=== PATIENT | female | born 1940 | race Caucasian/White ===

== ENCOUNTER 2016-06-29 12:49 | Emergency (ER) | payer OTHER ==
[2016-06-29 13:31] LABS: APPEARANCE HAZY (CLEAR); BILIRUBIN NEGATIVE (NEGATIVE); COLOR YELLOW (YELLOW); GLUCOSE NEGATIVE (NEGATIVE); KETONE NEGATIVE (NEGATIVE); LEUKOCYTE ESTERASE NEGATIVE (NEGATIVE); NITRITE NEGATIVE (NEGATIVE); PROTEIN NEGATIVE (NEGATIVE); SPECIFIC GRAVITY 1.025 (1.005-1.020); UROBILINOGEN NORMAL (NORMAL)
[2016-06-29 13:43] LABS: BASOPHILS 0.3 % (0.0-2.0); EOSINOPHILS 0.8 % (0-7); HEMATOCRIT 38.6 % (36.0-48.0); HEMOGLOBIN 12.8 g/dL (12-16); IMMATURE GRANULOCYTES 0.2 % (0-5); MCH 29.3 pg (26.0-34.0); MCHC 33.2 g/dL (31.0-37.0); MCV 88.3 fL (80.0-100.0); MEAN PLATELET VOLUME 10.9 fL (7.4-10.4); MONOCYTES 11.8 % (2-11); NEUTROPHILS 60.9 % (40-80); RBC 4.37 10x6/uL (4.00-5.40); RDW 14.9 % (11.5-14.5); WBC 12.1 10x3/uL (4.8-10.8)
[2016-06-29 13:45] LABS: PLATELET COUNT 228 10x3/uL (130-400)
[2016-06-29 14:14] LABS: ALBUMIN 3.4 g/dL (3.4-5.0); ANION GAP 12.2 mmol/L (8-16); BILIRUBIN - TOTAL 0.83 mg/dL (0.2-1.3); CALCIUM 9.5 mg/dL (8.5-10.1); CARBON DIOXIDE 29.8 mmol/L (21.0-32.0); CREATININE - SERUM 0.8 mg/dL (0.6-1.3); PROTEIN - SERUM 6.9 g/dL (6.4-8.2)
[2016-06-29 14:30] LABS: CREATINE KINASE 32 UL (21-215); TROPONIN-I < 0.017 ng/mL (0.000-0.060)
== END 2016-06-29 17:02 | disposition home or self-care (01) ==
LOC: D.ER 12:49
PROVIDERS: Emergency Medicine
DX: R41.82 Altered mental status, unspecified (principal); F03.90 Unspecified dementia, unspecified severity, without behavioral disturbance, psychotic disturbance, mood disturbance, and anxiety; R15.9 Full incontinence of feces; R32 Unspecified urinary incontinence; G20 Parkinson's disease